=== PATIENT | female | born 1950 | race Caucasian/White ===

== ENCOUNTER 2017-01-07 12:56 | Emergency (ER) | payer OTHER ==
[~2017-01-07] VITALS: Ht 162.6 cm; Wt 65.9 kg
[~2017-01-07 12:56] MED LIST: CITA20TA PO; DIT5 PO; GABA300C PO; HYDR1TAB92 PO; LEVO100T97 PO; LORA-303 PO; METH500T7 PO; OMPR20CCR PO; PRED5TAB PO; WEL100 PO
[2017-01-07 12:58] VITALS: BP 131/76; PULSE 95; RESP 15; O2SAT 98
--- NOTE | 2017-01-07 13:39 | ED.REPORT ---
HPI-Abd Pain F 40 and Over Date of Service Jan 07, 2017 ED Provider: Ophelia Esposito MD The patient is a 66 year old female with history of arthritis and chronic pain who presents to the emergency department complaining of "severe" LLQ abdominal pain that has been intermittent for over the last year. Her pain radiates through to her back. She has had an extensive workup including: CTs, MRI, and a colonoscopy with findings of diverticulum. Her pain has been under control for the last few months but it returned a 4 days ago. She describes the pain as sharp and constant. Her pain has worsened since onset. Today she develop urinary incontinence, fever, and chills. Her last episode that was this bad was 4-6 months ago. She was placed on antibiotics at that time and subsequently developed severe joint pain. She denies nausea, vomiting, diarrhea, bloody stools or black stools. She takes Vicodin for her chronic pain. She has had nasal congestion and a mild sore throat for several days as well. Nursing Notes Stated Complaint: ABDOMINAL PAIN Chief Complaint: Female Abdominal Pain Nursing Notes Reviewed: Yes Allergies: Coded Allergies: codeine (Verified Allergy, Severe, severe itching, 01/07/17) Sulfa (Sulfonamide Antibiotics) (Verified Allergy, Unknown, 01/07/17) amoxicillin (Verified Allergy, Unknown, 01/07/17) ciprofloxacin (Verified Adverse Reaction, Intermediate, TENDONITIS, ) Penicillins (Verified Adverse Reaction, Unknown, diarrhea, 01/07/17) Uncoded Allergies: SULFA (Allergy, Unknown, unknown, as child, 09/12/09) Scheduled Bupropion-Expunged Drug, Do Not Renew! (Bupropion-Expunged Drug, Do Not Renew!) 100 Mg Tablet 400 MG PO AM Citalopram-Expunged Drug, Do Not Renew! (Citalopram-Expunged Drug, Do Not Renew! ) 20 Mg Tablet 20 MG PO DAILY Gabapentin-Expunged Drug, Do Not Renew! (Neurontin-Expunged Drug, Do Not Renew! ) 300 Mg Capsule 600 MG PO TID Levothyroxine-Expunged Drug, Do Not Renew! (Levoxyl-Expunged Drug, Do Not Renew! ) 100 Mcg Tablet 100 MCG PO DAILY Omeprazole-Expunged Drug, Do Not Renew! (Omeprazole-Expunged Drug, Do Not Renew! ) 20 Mg Capsule.dr 20 MG PO DAILY Oxybutynin-Expunged Drug, Do Not Renew! (Ditropan-Expunged Drug, Do Not Renew!) 5 Mg Tablet 5 MG PO DAILY Peg/Electrolytes (Golytely Solution) 4,000 Ml Soln 4,000 ML PO Q15Min Prednisolone-Expunged Drug, Do Not Renew! (Prednisolone-Expunged Drug, Do Not Renew!) 5 Mg Tablet 10 MG PO DAILY Scheduled PRN Hydrocod/APAP-Expunged, Do Not Renew! (Hydrocod/APAP 7.5/325-Expunged, Do Not Renew!) 1 Tab Tablet 1 TAB PO Q12 PRN PRN Lorazepam-Expunged Drug, Do Not Renew! (Lorazepam-Expunged Drug, Do Not Renew!) 1 Mg Tab 0.5 MG PO BID PRN PRN Methocarbamol-Expunged Drug, Do Not Renew! (Methocarbamol-Expunged Drug, Do Not Renew!) 500 Mg Tablet 500 MG PO TID PRN PRN General Time Seen by MD: 13:37 Chief Complaint Abdominal pain Hx Obtained From: Patient Arrived By: Walk-in Sudden in Onset?: No Onset Occurred: 4 days ago Symptom Duration: Since onset Progression since Onset: Constant, Gradually worsening Location: : LLQ Quality: Same as prior, Painful, Sharp Radiation: : Back Severity: Current: Moderate Severity: Maximum: Moderate Pertinent Negative: Pt denies other symptoms Recent Healthcare: No recent hospitalization Similar Sx Previous: Yes Past Medical History Past Medical History Arthritis Neuropathy pain of R arm Chronic pain Divertulitis Reports: Cancer Past Surgical History Laparoscopy Family History Noncontributory Smoking History Never Smoker Social History Alcohol Use: "Social" Drug Use: Denies drug use, THC Other Social History: Good social support, Local resident 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 Ears / Nose / Throat: Reports: Nasal congestion Physical Exam Vital Signs Vital Signs (First) Date Time Temp Pulse Resp B/P Pulse Ox O2 Delivery O2 Flow Rate FiO2 01/07/17 12:58 38.6 95 15 131/76 98 Room Air Initial VS: Reviewed, Vital signs normal Head / Eyes: Atraumatic, Normocephalic, PERRL ENT: Mucous membranes moist, Conjunctiva normal, No scleral icterus Neck: Supple, Non-tender, Full range of motion Lymphatic: No lymphadenopathy Extremities: Vascular intact, Neuro intact, No swelling, No tenderness Skin: Warm, Dry, No cyanosis Neurologic: Alert, Oriented, Nonfocal Psychiatric: Mood/affect normal, Behavior normal, Normal thought content General/Constitutional: Awake, Alert, Cooperative Respiratory / Chest: Atraumatic, Breath sounds NL, Breath sounds = bilat, No respiratory distress, No rales, No rhonchi, No wheezing, No stridor Cardiovascular: Heart rate NL, Regular rhythm, Heart sounds NL, No murmurs, No rubs, Peripheral circulation NL Abdomen: Soft, No guarding, No rebound, BS normoactive, No distention, No hernia, No palpable mass, No pulsatile mass Tenderness/Guarding/Rebound: Positive: Tender LLQ... Back: No midline vertebral tend Flank / Spine / Paraspinal: Positive: Flank tender L (slight) Interpretation & Diagnostics Lab Results Interpretation Result Diagram: 01/07/17 1426 01/07/17 1426 Test 01/07/17 13:00 01/07/17 14:26 Urine Color Straw (YELLOW) Urine Appearance Hazy (CLEAR,HAZY) Urine pH 7.5 (5.0-8.0) Urine Specific [place] 1.010 (1.003-1.035) Urine Protein Negativemg/dL (NEG,TRACE) Urine Glucose (UA) Negativemg/dL (NEGATIVE) Urine Ketones Negativemg/dL (NEGATIVE) Urine Occult Blood Trace (NEGATIVE) Urine Nitrite Negative (NEGATIVE) Urine Bilirubin Negative (NEGATIVE) Urine Urobilinogen Normalmg/dL (NORMAL) Urine Leukocyte Esterase Negative (NEGATIVE) Urine RBC 0-2/hpf (0-2) Urine WBC 0-5/hpf (0-5) Urine Epithelial Cells Occasional/hpf (NONE-MOD) Urine Crystals None seen (NONE SEEN) Urine Bacteria None/hpf (NONE-FEW) Urine Hyaline Casts None/lpf (NONE) Urine Granular Casts None seen (NONE SEEN) Urine Waxy Casts None seen (NONE SEEN) Urine Red Blood Cell Casts None seen (NONE SEEN) Urine White Blood Cell Casts None seen (NONE SEEN) Urine Mucus None seen (None Seen) Urine Trichomonas None seen (NONE SEEN) Urine Yeast None (NONE SEEN) Urinalysis Comment None Urine Culture Reflexed Not indicated Hold Urine Received (Received) Hold Taylor Top Tube Received (Received) White Blood Count 12.7th/mm3 (3.8-10.1) Red Blood Count 3.38mil/mm3 (3.90-5.20) Hemoglobin 11.5g/dL (12.0-15.6) Hematocrit 35.3% (35.0-46.0) Mean Corpuscular Volume 92.2fL (81-100) Mean Corpuscular Hemoglobin 30.0pg (27.0-35.0) Mean Corpuscular Hemoglobin Concent 32.6% (32.0-37.0) Red Cell Distribution Width 12.9% (12.3-15.4) Platelet Count 264bil/L (150-400) Neutrophils (%) (Auto) 78% (40-74) Lymphocytes (%) (Auto) 15% (14-46) Monocytes (%) (Auto) 5% (4-12) Eosinophils (%) (Auto) 2% (0-5) Basophils (%) (Auto) 0% (0-3) Band Neutrophils % 0% (1-5) Sodium Level 140mEq/L (134-144) Potassium Level 4.2mEq/L (3.5-5.2) Chloride Level 102mEq/L (97-108) Carbon Dioxide Level 26mmol/L (18-29) Blood Urea Nitrogen 12mg/dL (8-27) Creatinine 0.65mg/dL (0.57-1.00) Estimat Glomerular Filtration Rate 131mL/min (>59) Glucose Level 90mg/dL (60-99) Calcium Level 8.8mg/dL (8.5-10.1) Magnesium Level 2.2mg/dL (1.6-2.6) Total Bilirubin 0.2mg/dL (0.0-1.2) Aspartate Amino Transf (AST/SGOT) 95U/L (0-50) Alanine Aminotransferase (ALT/SGPT) 125U/L (0-32) Alkaline Phosphatase 94U/L (25-165) Total Protein 5.8g/dL (6.4-8.4) Albumin 4.1g/dL (3.4-5.0) Lipase 13U/L (13-60) Re-Eval/Medical Decision Med Decision/Clinical Course The patient has had these symptoms before with no clear diagnosis. I was concerned given her fever although she had left lower quadrant pain she did not have any rebound or guarding. Evaluation here does not reveal a cause of her symptoms. While here she developed increasing sore throat and a change in her voice. Is likely that her fever is related to her upper respiratory infection. [place] her abdominal and flank pain partial list of differential diagnoses considered were renal colic, pyelonephritis, diverticulitis, and gastroenteritis. Source of Hx: Old records Re-Evaluation/Progress #1: Time of Eval: 17:25 Re-Evaluation/Progress Note: Rechecked the patient. Discussed plan to wait for CT read. Re-Evaluation/Progress #2: Time of Eval: 17:43 Re-Evaluation/Progress Note: Rechecked the patient. Discussed results, diagnosis, and plan for discharge. All questions were addressed. Counseled Regarding: Diagnosis, Lab results, Need for follow-up, When/why to return to ED Discharge & Departure Primary Impression: Abdominal pain of unknown etiology Additional Impression: Upper respiratory infection URI type: unspecified URI Qualified Code: J06.9 - Acute upper respiratory infection, unspecified Disposition: Home Discharge Condition All VS Reviewed: Yes Condition: Stable Patient Instructions: Acute Abdominal Pain (ED) Additional Instructions: Thank you for entrusting us with your care today. I do not know that your fever is related to your abdominal pain likely related to your sore throat and congestion. There are no signs of a serious infection. Since you seem to to feel improved with bowel movements I will give you medication to help clean out her bowels. Drinks about 8 ounces of the medication every 15 minutes until you have several large bowel movements. He can either stop it after several bowel movements or when your bowel movements become clear. Make sure you rest and drink plenty of fluids. Seek care for any new or concerning symptoms. Referrals: Humphrey Gonzalez MD (PCP) Scribe Attestation Portions of this note were transcribed by Brandy Zhou. I, Dr. Esposito personally performed the history, physical exam and medical decision-making; I reviewed and confirmed the accuracy of the information in the transcribed note. Signed by: Imani Linder, 01/07/2017 at 1800. copies to: Humphrey Gonzalez MD, Jena M MD Jan 07, 2017 13:39 Brandy Zhou Jan 07, 2017 13:42
[2017-01-07] MEDS ORDERED: 0.9% Sodium Chloride 1,000 ML IV ONE (14:05)
[2017-01-07 14:30] LABS: Mean Corpuscular Volume 92.2 fL (81-100); Platelet Count 264 bil/L (150-400)
[2017-01-07 14:31] LABS: BASOPHILS % (AUTO) 0 % (0-3); EOSINOPHILS % (AUTO) 2 % (0-5); MONOCYTES % (AUTO) 5 % (4-12); NEUTROPHILS % (AUTO) 78 % (40-74)
[2017-01-07 14:49] LABS: APPEARANCE,URINE HAZY (CLEAR,HAZY); COLOR,URINE STRAW (YELLOW); OCCULT BLOOD,URINE TRACE (NEGATIVE); PH,URINE 7.5 (5.0-8.0); UROBILINOGEN,URINE NORMAL (NORMAL)
[2017-01-07 15:04] LABS: Magnesium 2.2 mg/dL (1.6-2.6)
[2017-01-07 17:01] VITALS: BP 152/78; PULSE 88; RESP 16; O2SAT 98
--- NOTE | 2017-01-07 17:41 | DRSVH ---
PROCEDURE: CT ABDOMEN AND PELVIS WITH CONTRAST ([id number]) INDICATIONS: LLQ pain TECHNIQUE: After the administration of intravenous contrast, 5 mm thick sections acquired from the diaphragm to the symphysis. 5 mm coronal and sagittal reformats were acquired. For radiation dose reduction, the following was used: automated exposure control, adjustment of mA and/or kV according to patient siz e. COMPARISON: [facility], CT, ABD/PELVIS W/CON (PN), 04/30/2010, 18:06. FINDINGS: Image quality: Excellent. ABDOMEN: Lung bases: Left basilar scarring/atelectasis. Mild cardiomegaly Solid organs: Liver and spleen are normal in size and enhancement. Gallbladder negative. Biliary s ystem is non dilated. Pancreas enhances normally. No adrenal nodules. Kidneys demonstrate normal s ize and enhancement, without hydronephrosis. Possible nonobstructing 1 mm right renal calculus on im age 44 series 2 although technically indeterminate given contrast administration Peritoneum and bowel: Bowel loops demonstrate normal wall thickness and caliber. No free fluid or a ir. Appendix not definitely identified although no pericecal inflammatory changes are seen. No evide nce of acute diverticulitis. Rectum decompressed and grossly unremarkable. Nodes and vessels: No retroperitoneal or mesenteric adenopathy by size criteria. Aorta and inferior vena cava are normal in size. Miscellaneous: No ventral hernias. PELVIS: Genitourinary: Bladder wall thickness is normal. Miscellaneous: No inguinal hernias or adenopathy. Low attenuation possible fluid collection or lymp hocele, or cystic structure posterior to the left common femoral artery and vein is indeterminate how ever unchanged since 04/30/10 Bones: No suspicious bony lesions. No vertebral body compression fractures. IMPRESSION: Overall, no acute abnormality or specific visualized etiology of left lower quadrant pain. No evidenc e of acute diverticulitis. Appendix not clinically identified although no pericecal inflammatory changes. Please correlate clini kishor to exclude occult appendicitis. Nonobstructive 1 mm right renal calculus. Dictated by: Ismael Bailey M.D. on 01/07/2017 at 17:35 Approved by: Ismael Bailey M.D. on 01/07/2017 at 17:40
[2017-01-07] MEDS ORDERED: COLL PO (18:04)
[2017-01-07 18:33] VITALS: BP 141/74; RESP 16; O2SAT 97
== END 2017-01-07 18:34 | disposition home or self-care (01) ==
LOC: SED 12:56
DX: R10.32 Left lower quadrant pain (principal); J06.9 Acute upper respiratory infection, unspecified; Z88.0 Allergy status to penicillin; Z88.1 Allergy status to other antibiotic agents; Z88.2 Allergy status to sulfonamides; Z88.5 Allergy status to narcotic agent
CPT/HCPCS: 36415; 74177; 80053; 81000; 83690; 83735; 85025; 96360; 99285; J7030; Q9967